=== PATIENT | female | born 1945 | race Caucasian/White ===

== ENCOUNTER 2019-03-04 08:07 | Day surgery (SDC) | payer MEDICARE, OTHER ==
[~2019-03-04 08:07] MED LIST: Cefuroxime 10 MG/ML SYRINGE EYERT SCH; Lidocaine 1% PF 2 ML SDV INJECT SCH; Pilocarpine 4% Ophth Soln 15 ML Bot EYERT SCH
[2019-03-04] MEDS: Polymyxin B/Trimethoprim 10 ML Bottle EYERT SCH ×3 (09:10→10:49)
[2019-03-04] MEDS: Brimonidine 0.2% Ophth Soln 15 ML Bottle EYERT SCH ×3 (09:15→10:49)
--- NOTE | 2019-03-04 09:16 | PCM.PREANE ---
Preanesthetic Assessment - Anesthesia/Transfusion/Family Hx Anesthesia History: Prior Anesthesia Without Reaction Family History of Anesthesia Reaction: No Transfusion History: No Prior Transfusion(s) - Review of Systems General: No Symptoms Pulmonary: No Symptoms Cardiovascular: No Symptoms Gastrointestinal: No Symptoms Neurological: No Symptoms Other: Reports: None - Physical Assessment NPO Status Date: 03/03/19 NPO Status Time: 20:00 Pulse: 64 O2 Sat by Pulse Oximetry: 94 Respiratory Rate: 16 Blood Pressure: 124/50 Temperature: 98.1 C ASA Class: 2 Mental Status: Alert & Oriented x3 Airway Class: Mallampati = 1 Dentition: Reports: Dentures (upper) Thyro-Mental Finger Breadths: 3 Mouth Opening Finger Breadths: 3 ROM/Head Extension: Full Lungs: Clear to Auscultation, Normal Respiratory Effort Cardiovascular: Regular Rate, Regular Rhythm - Allergies Allergies/Adverse Reactions: Allergies Allergy/AdvReac Type Severity Reaction Status Date / Time aspirin Allergy Cannot Verified 03/01/19 15:02 Remember - Acknowledgements Anesthesia Type Planned: MAC Pt an Appropriate Candidate for the Planned Anesthesia: Yes Alternatives and Risks of Anesthesia Discussed w Pt/Guardian: Yes Pt/Guardian Understands and Agrees with Anesthesia Plan: Yes PreAnesthesia Questionnaire HEENT History: Reports: Cataract Cardiovascular History: Reports: High Cholesterol, Hypertension Respiratory History: Reports: None Gastrointestinal History: Reports: None Genitourinary History: Reports: None Musculoskeletal History: Reports: Back Pain, Chronic Neurological History: Reports: None Psychiatric History: Reports: Depression Endocrine/Metabolic History: Reports: Hypothyroidism - Past Surgical History Head Surgeries/Procedures: Reports: None HEENT Surgical History: Reports: None Cardiovascular Surgical History: Reports: None Respiratory Surgical History: Reports: None GI Surgical History: Reports: Cholecystectomy Female Surgical History: Reports: Hysterectomy Male Surgical History: Reports: None Endocrine Surgical History: Reports: None Neurological Surgical History: Reports: Lumbar Spine (L4-5 screws placed), Other (See Below) (growth on spine removed) Musculoskeletal Surgical History: Reports: None Oncologic Surgical History: Reports: None - SUBSTANCE USE Smoking Status *Q: Former Smoker - HOME MEDS Home Medications: Home Meds Dextran 70/Hypromellose [Artificial Tears] 1 drop EYEBOTH ASDIRECTED PRN [History] Gemfibrozil [Lopid] 600 mg PO DAILY 03/01/19 [History] Hydrochlorothiazide [Microzide] 12.5 mg PO DAILY 03/01/19 [History] Levothyroxine [Synthroid] 50 mcg PO DAILY 03/01/19 [History] Lisinopril 20 mg PO DAILY 03/01/19 [History] Sertraline [Zoloft] 50 mg PO DAILY 03/01/19 [History] atorvaSTATin [Lipitor] 40 mg PO DAILY 03/01/19 [History] - CURRENT (IN HOUSE) MEDS Current Meds: Current Medications Brimonidine Tartrate (Brimonidine Tartrate 0.2% Ophth Soln) 0 ml EYERT ASDIRECTED TERESA Stop: 03/04/19 18:00 Cefuroxime Sodium (Zinacef) 0 mg EYERT ASDIRECTED TERESA Stop: 03/04/19 18:00 Lidocaine HCl (Xylocaine-Mpf 1%) 0 ml INJECT ASDIRECTED TERESA Stop: 03/04/19 18:00 Phenylephrine HCl (Gerardo-Synephrine 2.5% Ophth Soln) 0 ml EYERT ASDIRECTED TERESA Stop: 03/04/19 18:00 Pilocarpine HCl (Pilocar 4% Ophth Soln) 0 ml EYERT ASDIRECTED TERESA Stop: 03/04/19 18:00 Polymyxin/Trimethoprim Sulfate (Polytrim Ophth Soln) 0 ml EYERT ASDIRECTED TERESA Stop: 03/04/19 18:00 Tetracaine HCl (Tetracaine 0.5% Steri-Unit Ledy) 0 ml EYERT ASDIRECTED TERESA Stop: 03/04/19 18:00 Tropicamide (Mydriacyl 1% Ophth Soln) 0 ml EYERT ASDIRECTED TERESA Stop: 03/04/19 18:00
[2019-03-04] MEDS: Phenylephrine 2.5% Ophth Soln 2 ML Bot EYERT SCH ×5 (09:20→10:32)
[2019-03-04] MEDS: Tropicamide 1% Ophth Soln 15 ML Bottle EYERT SCH ×4 (09:25→10:05)
[2019-03-04] MEDS: Tetracaine HCl/PF 0.5% 4 ML Bottle EYERT SCH ×4 (10:10→10:40)
== END 2019-03-04 11:00 | disposition home or self-care (01) ==
LOC: JD.SDS 08:07
PROVIDERS: ATTEND Ophthalmology
DX: H25.813 Combined forms of age-related cataract, bilateral (principal); H16.103 Unspecified superficial keratitis, bilateral; H16.223 Keratoconjunctivitis sicca, not specified as Sjogren's, bilateral; H02.834 Dermatochalasis of left upper eyelid; H02.831 Dermatochalasis of right upper eyelid; E78.00 Pure hypercholesterolemia, unspecified; I10 Essential (primary) hypertension; E03.9 Hypothyroidism, unspecified; F32.9 Major depressive disorder, single episode, unspecified; Z87.891 Personal history of nicotine dependence; Z79.899 Other long term (current) drug therapy; Z88.8 Allergy status to other drugs, medicaments and biological substances; Z98.890 Other specified postprocedural states
CPT/HCPCS: 66984; J0697; J2001; C1780